=== PATIENT | female | born 1965 | race Caucasian/White ===

== ENCOUNTER 2017-07-21 13:45 | Emergency (ER) | payer BC, SELFPAY ==
[2017-07-21 13:46] VITALS: BMI 27.3
--- NOTE | 2017-07-21 13:47 | XR_ITS ---
XR chest portable Ordering Physician: Donavon Sousa MD Patient Age: 52 years: Female HISTORY: ITS.REASON: CHEST PAIN TECHNIQUE: AP portable upright chest COMPARISON :09/09/2012 CXR FINDINGS Today's higher contrast digital study accentuates markings bilaterally but but considering such as see no significant new features are compared to prior 2013 exam.. Slight coarsening markings most evident at the right infrahilar region stable. Heart nevin and mediastinal structures unchanged. No pneumothorax no pleural effusion chest wall grossly unremarkable limited portable study IMPRESSION: ------ No discrete new findings when technique is considered.
[2017-07-21 13:48] VITALS: BP 126/85; PULSE 71; RESP 16; TEMP 36.9; O2SAT 97; BMI 26.5
[2017-07-21 14:16] VITALS: BP 128/90; PULSE 75; O2SAT 97
[2017-07-21 14:16] LABS: Basophils # 0.1 K/mm3 (0-0.2); Basophils % 0.8 % (0.1-2.0); Eosinophils # 0.3 K/mm3 (0.0-0.4); Eosinophils % 3.1 % (0.1-12.0); Hematocrit 46.1 % (37.0-47.0); Hemoglobin 15.4 g/dL (12.2-16.2); Lymphocytes # 3.5 K/mm3 (0.7-4.5); Lymphocytes % 37.3 K/mm3 (10-50); Mean Corpuscular HGB Conc 33.3 g/dL (31.8-35.4); Mean Corpuscular Hemoglobin 30.8 pg (27.0-31.2); Mean Corpuscular Volume 92.5 fl (81-99); Mean Platelet Volume 8.5 fl (7.4-10.4); Monocytes # 0.4 K/mm3 (0.1-1.0); Monocytes % 4.7 % (1.7-9.3); Neutrophils # 5.1 K/mm3 (1.8-7.8); Neutrophils % 54.1 % (37.0-80.0); Platelet Count 316 K/mm3 (142-424); Red Blood Count 4.99 M/mm3 (4.20-5.40); White Blood Count 9.3 K/mm3 (4.8-10.8)
[2017-07-21 14:26] LABS: Lactic Acid 1.3 mmol/L (0.4-2.0)
[2017-07-21 14:33] LABS: CKMB Relative Index 0.7 U/L (0-4.0); Creatine Kinase 71 U/L (26-192); Creatine Kinase MB < 0.5 mg/ml (0.0-3.6); Sodium 139 mmol/L (136-145); Troponin I < 0.02 ng/ml (0.00-0.06)
[2017-07-21 14:34] LABS: Alanine Aminotransferase 37 U/L (12-78); Anion Gap 10.8 mEq/L (5-15); Aspartate Amino Transferase 22 U/L (15-37); Bilirubin,Total 0.3 mg/dL (0.2-1.0); Blood Urea Nitrogen 15 mg/dL (7-18); Calcium 9.2 mg/dL (8.5-10.1); Carbon Dioxide 27 mmol/L (21.0-32.0); Chloride 105 mmol/L (98-107); Creatinine Clearance Estimated 93 mL/min (0-300); Creatinine,Serum 0.74 mg/dL (0.55-1.02); Estimated Glomerular Filt Rate 83 ml/min (>60); GFR (African American) 100 ML/MIN (>60); Glucose 112 mg/dL (74-106); Potassium 3.8 mmoL/L (3.5-5.1)
[2017-07-21 14:35] LABS: Albumin Level 3.6 gm/dL (3.4-5.0); Albumin/Globulin Ratio 0.9 (1.1-1.8); Alkaline Phosphatase 111 U/L (46-116); Globulin 3.9 gm/dl (1.3-3.2); Total Protein,Serum 7.5 gm/dL (6.4-8.2)
--- NOTE | 2017-07-21 16:20 | [facility].EDCP ---
ED Disposition Clinical Impression: Pleurisy Disposition: Home, Self-Care Condition on Discharge: Good Instructions: DI for Pleurisy Additional Instructions: fluids and see pcp for follow up Prescriptions: Azithromycin [Zithromax 250mg tab] 250 mg PO DIRECTED #6 tab Benzonatate [Tessalon Perle 100mg Cap] 100 mg PO TID #30 cap predniSONE [Prednisone 20mg Tab] 20 mg PO DAILY #10 tab Referrals: Melita Menjivar MD [Primary Care Provider] - - Critical Care Critical Care Time: No Attestation: On 07/21/17, the high probability of a clinically significant, sudden or life threatening deterioration of the following system(s) required my full and direct attention, intervention and personal management. The time I documented below is in addition to time spent performing reported procedures but includes the following listed in this critical care notation. Medical Decision Making - Medical Records Medical records reviewed: Yes: I reviewed the patient's medical records. Vital Signs: 07/21/17 13:48 07/21/17 14:16 Temperature 98.4 F Temperature Source Oral Pulse Rate [Right Radial] 71 75 Respiratory Rate 16 Blood Pressure [Left Arm] 126/85 128/90 Blood Pressure Mean [Left Arm] 98 102 Blood Pressure Source [Left Arm] Automatic Cuff Automatic Cuff Blood Pressure Position [Left Arm] Supine Sitting 02 Sat by Pulse Oximetry 97 97 Oxygen Delivery Method Room Air - Lab Data Lab results reviewed: Yes: I reviewed the patient's lab results. Lab Results 07/21/17 14:00: Total Creatine Kinase 71, CK-MB (CK-2) < 0.5, CK-MB (CK-2) Rel Index 0.7, Troponin I < 0.02 07/21/17 14:00: WBC 9.3, RBC 4.99, Hgb 15.4, Hct 46.1, MCV 92.5, MCH 30.8, MCHC 33.3, RDW 13.0, Plt Count 316, MPV 8.5, Neut % (Auto) 54.1, Lymph % (Auto) 37.3, Blair % (Auto) 4.7, Eos % (Auto) 3.1, Baso % (Auto) 0.8, Neut # (Auto) 5.1, Lymph # (Auto) 3.5, Blair # (Auto) 0.4, Eos # (Auto) 0.3, Baso # (Auto) 0.1 07/21/17 14:00: Sodium 139, Potassium 3.8, Chloride 105, Carbon Dioxide 27, Anion Gap 10.8, BUN 15, Creatinine 0.74, Estimated Creat Clear 93, Estimated GFR 83, Est GFR ( Amer) 100, Glucose 112 H, Calcium 9.2, Total Bilirubin 0.3, AST 22, ALT 37, Alkaline Phosphatase 111, Total Protein 7.5, Albumin 3.6, Globulin 3.9 H, Albumin/Globulin Ratio 0.9 L 07/21/17 14:00: Lactic Acid 1.3 07/21/17 14:00: D-Dimer 339 07/21/17 16:22: Troponin I < 0.02 Result diagrams: 07/21/17 14:00 07/21/17 14:00 Orders (Tests/Meds): ED MEDICATIONS Discontinued Medications Generic Name Dose Route Start Last Admin Trade Name Freq PRN Reason Stop Dose Admin Aspirin 325 mg 07/21/17 14:00 07/21/17 14:03 Aspirin 325mg Tablet PO 07/21/17 14:01 325 mg ONCE ONE Administration Ketorolac Tromethamine 30 mg 07/21/17 16:31 07/21/17 16:38 Toradol 30mg/Ml Vial IV 07/21/17 16:32 30 mg ONCE ONE Administration Methylprednisolone Sodium Succinate 125 mg 07/21/17 16:31 07/21/17 16:38 Solu-Medrol 125mg/2ml Vial IV 07/21/17 16:32 125 mg ONCE ONE Administration ORDERS Category Date Time Status Blood Culture Stat Micro 07/21/17 14:00 Received - Radiology Data #1 Image(s): Chest Image Reviewed: Yes I reviewed the patient's radiology image Preliminary Findings: Normal/NAD - ECG Data Tracing #1 I reviewed this ECG and interpreted as documented below: Normal Sinus Rhythm: Yes Ischemic changes: non-specific ST-T wave changes - [place] Inquiry Pt receiving controlled substance: No Chest Pain HPI - General Chief Complaint: Chest Pain Stated Complaint: CHEST PAIN Time Seen by Provider: 07/21/17 16:20 Mode of Arrival: Ambulatory Source of Information: Patient, Significant Other, Medical Record Limitations: No Limitations Description of Symptoms (Recalled from ER Triage Doc. by RN): CHEST PAIN, RADIATING TO MIDDLE OF BACK AND LEFT SHOULDER, SOA - History of Present Illness HPI narrative: lt sided chest p
[2017-07-21 16:46] LABS: Troponin I < 0.02 ng/ml (0.00-0.06)
[2017-07-21 17:16] LABS: D-Dimer 339 (0-400)
[2017-07-21 17:35] VITALS: BP 115/70; PULSE 75; RESP 16; TEMP 36.9; O2SAT 98
== END 2017-07-21 17:37 | disposition home or self-care (01) ==
PROVIDERS: Emergency Provider Emergency Medicine; Family Provider Family Medicine; PCP Family Medicine
DX: R09.1 Pleurisy (principal); Z87.891 Personal history of nicotine dependence
CPT/HCPCS: 36415; 71045; 80053; 82550; 82553; 83605; 84484; 85025; 85378; 87040; 93005; 93041; 96374; 96375; 99283

== ENCOUNTER → 2022-11-02 10:16 | Outpatient (CLI) | payer OTHER, SELFPAY ==
[2022-11-02 18:33] LABS: Basophils # 0.1 K/mm3 (0-0.2); Basophils % 0.4 % (0.1-2.0); Eosinophils # 0.1 K/mm3 (0.0-0.4); Eosinophils % 0.9 % (0.1-12.0); Hemoglobin 15.1 g/dL (12.2-16.2); Lymphocytes # 2.8 K/mm3 (0.7-4.5); Lymphocytes % 20.5 % (10-50); Mean Corpuscular HGB Conc 32.9 g/dL (31.8-35.4); Mean Corpuscular Hemoglobin 31.4 pg (27.0-31.2); Mean Corpuscular Volume 95.5 fl (81-99); Monocytes # 0.9 K/mm3 (0.1-1.0); Monocytes % 6.7 % (1.7-9.3); Neutrophils # 9.8 K/mm3 (1.8-7.8); Neutrophils % 71.4 % (37.0-80.0); Platelet Count 440 K/mm3 (142-424); Red Blood Count 4.82 M/mm3 (4.20-5.40); Red Cell Distribution Width 13.3 % (11.5-17.5); White Blood Count 13.7 K/mm3 (4.8-10.8)
== END ==
LOC: LAB.DROPOF 11-05 06:31
PROVIDERS: PCP Nurse Practitioner; Visit Provider Nurse Practitioner
DX: R10.12 Left upper quadrant pain (principal)
CPT/HCPCS: 85025

== ENCOUNTER 2023-08-15 22:12 | Outpatient (CLI) | payer OTHER, SELFPAY ==
[2023-08-15 18:26] LABS: Adenovirus,PCR Not Detected (NotDetected); Coronavirus 19, PCR Not Detected (NotDetected); Coronavirus 229E Not Detected (NotDetected); Coronavirus NL63 Not Detected (NotDetected); Coronavirus OC43 Not Detected (NotDetected); Coronovirus HKU1,PCR Not Detected (NotDetected); Human Metapneumovirus Not Detected (NotDetected); Influenza A, PCR Not Detected (NotDetected); Influenza AH1, 2009 Not Detected (NotDetected); Influenza AH1, PCR Not Detected (NotDetected); Influenza AH3,PCR Not Detected (NotDetected); Influenza B, PCR Not Detected (NotDetected); Parainfluenza 1, PCR Not Detected (NotDetected); Parainfluenza 2, PCR Not Detected (NotDetected); Parainfluenza 3, PCR Not Detected (NotDetected); Parainfluenza 4, PCR Not Detected (NotDetected); Respiratory Syncytial Virus Not Detected (NotDetected); Rhinovirus/Enterovirus Not Detected (NotDetected)
== END 2023-08-15 23:59 ==
LOC: LAB.DROPOF 22:12
PROVIDERS: PCP Nurse Practitioner; Visit Provider Nurse Practitioner
DX: J06.9 Acute upper respiratory infection, unspecified (principal); R50.81 Fever presenting with conditions classified elsewhere; R06.02 Shortness of breath; R05.8 Other specified cough
CPT/HCPCS: 87632; 87635

== ENCOUNTER 2023-10-11 17:55 | Outpatient (CLI) | payer OTHER, SELFPAY ==
[2023-10-11 17:53] LABS: Basophils # 0.1 K/mm3 (0-0.2); Basophils % 1.5 % (0.1-2.0); Eosinophils # 0.3 K/mm3 (0.0-0.4); Eosinophils % 3.2 % (0.1-12.0); Hematocrit 46.9 % (37.0-47.0); Hemoglobin 15.3 g/dL (12.2-16.2); Lymphocytes # 3.8 K/mm3 (0.7-4.5); Lymphocytes % 42.7 % (10-50); Mean Corpuscular HGB Conc 32.6 g/dL (31.8-35.4); Mean Corpuscular Hemoglobin 31.4 pg (27.0-31.2); Mean Corpuscular Volume 96.3 fl (81-99); Mean Platelet Volume 9.3 fl (7.4-10.4); Monocytes # 0.4 K/mm3 (0.1-1.0); Monocytes % 4.7 % (1.7-9.3); Neutrophils # 4.2 K/mm3 (1.8-7.8); Neutrophils % 47.8 % (37.0-80.0); Platelet Count 366 K/mm3 (142-424); Red Blood Count 4.87 M/mm3 (4.20-5.40); Red Cell Distribution Width 14.4 % (11.5-17.5); White Blood Count 8.8 K/mm3 (4.8-10.8)
[2023-10-11 18:25] LABS: Alanine Aminotransferase 21 U/L (12-78); Albumin Level 4.3 g/dl (3.5-5.0); Albumin/Globulin Ratio 1.7 (1.1-1.8); Alkaline Phosphatase 97 U/L (38-126); Aspartate Amino Transferase 25 U/L (14-36); Bilirubin,Total 0.5 mg/dl (0.2-1.3); Blood Urea Nitrogen 13 mg/dl (7-17); Calcium 9.7 mg/dl (8.4-10.2); Carbon Dioxide 27 mmol/L (22.0-30.0); Chloride 107 mmol/L (98-107); Chol/HDL Ratio 3.5 (1-3.5); Cholesterol 222 mg/dl (140-200); Estimated Glomerular Filt Rate 74 ml/min (>60); GFR (African American) 89 ML/MIN (>60); Globulin 2.6 g/dL (1.3-3.2); Glucose 113 mg/dl (74-100); HDL Cholesterol 64 mg/dl (40-60); Sodium 142 mmol/L (136-145); Total Protein,Serum 6.9 g/dl (6.3-8.2); Triglycerides 141 mg/dl (30-150); VLDL Cholesterol 28 mg/dL (0-40)
[2023-10-11 18:36] LABS: Direct LDL Cholesterol 125.33 mg/dL (100-129)
[2023-10-11 18:45] LABS: 25-OH Vitamin D, Total 34.9 ng/mL (30-100)
[2023-10-11 18:47] LABS: T4 (Thyroxine) 6.3 ug/dl (5.53-11.0)
[2023-10-11 19:00] LABS: Thyroid Stimulating Hormone 1.06 uIU/mL (0.465-4.68)
== END 2023-10-11 23:59 | disposition home or self-care (01) ==
LOC: LAB.DROPOF 17:55
PROVIDERS: PCP Nurse Practitioner; Visit Provider Nurse Practitioner
DX: Z90.49 Acquired absence of other specified parts of digestive tract (principal); Z87.19 Personal history of other diseases of the digestive system; R73.9 Hyperglycemia, unspecified; E66.3 Overweight; Z68.29 Body mass index [BMI] 29.0-29.9, adult
CPT/HCPCS: 80053; 80061; 82306; 84436; 84443; 85025

== ENCOUNTER 2024-10-15 14:00 | Outpatient (CLI) | payer MEDICAID, SELFPAY ==
[2024-10-15 18:22] LABS: Basophils # 0.1 K/mm3 (0-0.2); Basophils % 0.9 % (0.1-2.0); Eosinophils # 0.3 Kmm3 (0.0-0.4); Eosinophils % 2.4 % (0.1-12.0); Hematocrit 44.3 % (37.0-47.0); Hemoglobin 14.7 g/dL (12.2-16.2); Lymphocytes # 4.1 K/mm3 (0.7-4.5); Lymphocytes % 37.6 % (10-50); Mean Corpuscular HGB Conc 33.2 g/dL (31.8-35.4); Mean Corpuscular Hemoglobin 30.9 pg (27.0-31.2); Mean Corpuscular Volume 93.3 fl (81-99); Monocytes # 0.7 K/mm3 (0.1-1.0); Monocytes % 6.3 % (1.7-9.3); Neutrophils # 5.7 K/mm3 (1.8-7.8); Neutrophils % 52.4 % (37.0-80.0); Nucleated Red Blood Cells # 0 10^3/uL; Nucleated Red Blood Cells % 0 %; Platelet Count 372 K/mm3 (142-424); Red Blood Count 4.75 M/mm3 (4.20-5.40); Red Cell Distribution Width 13.6 % (11.5-17.5); Red Cell Distribution Width-SD 46.5 fL; White Blood Count 10.9 K/mm3 (4.8-10.8)
[2024-10-15 18:45] LABS: Creatinine,Urine Random 101 mg/dL (Not Estab.); Microalbumin < 6.000 mg/L (0-16.7)
[2024-10-15 19:11] LABS: Alanine Aminotransferase 18 U/L (12-78); Albumin Level 4.4 g/dl (3.5-5.0); Albumin/Globulin Ratio 1.6 (1.1-1.8); Alkaline Phosphatase 108 U/L (38-126); Anion Gap 7.1 mEq/L (5-15); Aspartate Amino Transferase 21 U/L (14-36); Bilirubin,Total 0.4 mg/dl (0.2-1.3); Blood Urea Nitrogen 12 mg/dl (7-17); Calcium 9.3 mg/dl (8.4-10.2); Carbon Dioxide 27 mmol/L (22.0-30.0); Chloride 108 mmol/L (98-107); Chol/HDL Ratio 4.1 (1-3.5); Cholesterol 210 mg/dl (140-200); Estimated Glomerular Filt Rate 74 ml/min (>60); GFR (African American) 89 ML/MIN (>60); Globulin 2.7 g/dL (1.3-3.2); Glucose 80 mg/dl (74-100); HDL Cholesterol 51 mg/dl (40-60); Potassium 4.1 mmoL/L (3.5-5.1); Sodium 138 mmol/L (136-145); Total Protein,Serum 7.1 g/dl (6.3-8.2); Triglycerides 162 mg/dl (30-150); VLDL Cholesterol 32 mg/dL (0-40)
[2024-10-15 19:29] LABS: Direct LDL Cholesterol 113.09 mg/dL (100-129)
[2024-10-15 19:42] LABS: Thyroid Stimulating Hormone 1.38 uIU/mL (0.465-4.68)
[2024-10-15 20:03] LABS: Vitamin B12 230 pg/mL (239-931)
[2024-10-15 20:33] LABS: Hemoglobin A1C 5.7 % (4.0-6.0)
== END 2024-10-15 23:59 | disposition home or self-care (01) ==
LOC: LAB.DROPOF 10-16 12:36
PROVIDERS: PCP Nurse Practitioner; Visit Provider Nurse Practitioner
DX: Z13.220 Encounter for screening for lipoid disorders (principal); R73.01 Impaired fasting glucose; F41.9 Anxiety disorder, unspecified; F32.A Depression, unspecified; Z87.891 Personal history of nicotine dependence
CPT/HCPCS: 80053; 80061; 82043; 82570; 82607; 83036; 84443; 85025